=== PATIENT | female | born 1990 | race Caucasian/White ===

== ENCOUNTER 2020-10-18 02:02 | Emergency (ER) | payer OTHER ==
[~2020-10-18] VITALS: Ht 170.2 cm; Wt 71.7 kg
[2020-10-18 02:05] VITALS: BP 119/67
--- NOTE | 2020-10-18 02:05 | NUR ---
to bed ambulatory
--- NOTE | 2020-10-18 02:05 | NUR ---
COVERING PRIMARY RN FOR LUNCH RELIEF--- SEE COMPLETE ASSESSMENT FOR ADDITIONAL INFO
--- NOTE | 2020-10-18 02:20 | NUR ---
Pt c/o severe SEVILLA x3 days. States hx of chronic migraines; has tried multiple OTC pain relievers and have not helped the pain. States she has run out of her regular migraine medication and is scheduled to see neurologist later this month. Denies other medical hx/medications. A/Ox4, ambulatory with steady gait.
[2020-10-18 02:33] VITALS: BP 119/67
--- NOTE | 2020-10-18 02:34 | NUR ---
Patient discharged with v/s stable. Written and verbal after care instructions given and explained. Patient alert, oriented and verbalized understanding of instructions. Ambulatory with steady gait. All questions addressed prior to discharge. ID band removed. Patient advised to follow up with PMD. Rx of butorphanol nasal spray given. Patient educated on indication of medication including possible reaction and side effects. Opportunity to ask questions provided and answered.
== END 2020-10-18 02:34 | disposition home or self-care (01) ==
LOC: MED 02:02
DX: G43.909 Migraine, unspecified, not intractable, without status migrainosus (principal)
CPT/HCPCS: 99283

== ENCOUNTER 2020-11-02 22:20 | Emergency (ER) | payer OTHER ==
[~2020-11-02] VITALS: Ht 170.2 cm; Wt 72.6 kg
[2020-11-02 22:24] VITALS: BP 130/69
--- NOTE | 2020-11-02 22:26 | NUR ---
TO LOBBY A/W BED AMBULATORY
[2020-11-03 00:42] VITALS: BP 130/69
== END 2020-11-02 23:50 | disposition left against medical advice (07) ==
LOC: MED 22:20
DX: R05 Cough (principal); R09.81 Nasal congestion; Z53.21 Procedure and treatment not carried out due to patient leaving prior to being seen by health care provider